=== PATIENT | female | born 2000 | race African-American/Black ===

== ENCOUNTER 2021-07-17 11:33 | Observation (INO) | payer BC ==
[2021-07-17] MEDS ORDERED: IV RINGERS,LACTATED 1000ML 1,000 ML IV PRN (13:00)
[2021-07-17] MEDS ORDERED: hydrOXYzine 25 MG TABLET PO PRN (13:15)
[2021-07-17 13:49] LABS: BACTERIA,URINE FEW /HPF (0-FEW); RBC,URINE 0 /HPF (0-2)
== END 2021-07-17 15:32 | disposition home or self-care (01) ==
LOC: 3 SO LND 11:33
PROVIDERS: ADMIT Obstetrics & Gynecology; ATTEND Obstetrics & Gynecology
DX: O62.9 Abnormality of forces of labor, unspecified (principal); Z3A.39 39 weeks gestation of pregnancy; Z79.899 Other long term (current) drug therapy
CPT/HCPCS: 59025; 81001; 87086; G0378; G0379